=== PATIENT | female | born 1945 | race Caucasian/White ===

== ENCOUNTER 2022-10-28 06:07 | Day surgery (SDC) | payer MEDICARE ==
[2022-10-26 14:10] LABS: BASOPHILS % (AUTO) 0.7 % (0-1); EOSINOPHILS # (AUTO) 0.1 X10'3 (0-0.9); EOSINOPHILS % (AUTO) 1.3 % (0-6); LYMPHOCYTES # (AUTO) 1.6 X10'3 (1.1-4.8); LYMPHOCYTES % (AUTO) 27.2 % (21-51); MEAN CORPUSCULAR HEMOGLOBIN 30.6 PG (27.0-31.0); MEAN CORPUSCULAR HGB CONC 32.9 g/dL (33.0-36.5); MEAN PLATELET VOLUME 7.8 FL (7.4-10.4); MONOCYTES # (AUTO) 0.5 X10'3 (0-0.9); NEUTROPHILS # (AUTO) 3.7 X10'3 (1.8-7.7); NEUTROPHILS % (AUTO) 61.8 % (42-75); PRE OP HEMATOCRIT 41.7 % (35.0-45.0); PRE OP HEMOGLOBIN 13.7 g/dL (12.0-16.0); PRE OP PLATELET COUNT 250 X10'3 (140-440); RED BLOOD COUNT 4.48 X10'6 (4.20-5.60)
[2022-10-26 14:16] LABS: ALBUMIN/GLOBULIN RATIO 1.1 (1.1-1.5); ALKALINE PHOSPHATASE 137 IU/L (46-116); BLOOD UREA NITROGEN 13 MG/DL (7-18); BUN/CREATININE RATIO 19.1 (10.0-20.0); CALCIUM 9.4 MG/DL (8.5-10.1); CHLORIDE 105 MMOL/L (99-107); CREATININE 0.68 MG/DL (0.40-0.90); PRE OP ALT 26 U/L (30-65); PRE OP ANION GAP 9 (8-16); PRE OP AST 33 U/L (10-37); PRE OP BILIRUB, TOTAL 0.3 MG/DL (0.0-1.0); PRE OP SODIUM 140 MMOL/L (135-145); TOTAL CARBON DIOXIDE 26.5 MMOL/L (24-32); TOTAL PROTEIN 7.6 G/DL (6.4-8.2); eGFR 84 ML/MIN
[2022-10-26 14:18] LABS: PRE OP GLUCOSE 118 MG/DL (70-104)
[2022-10-26 14:32] LABS: PRE OP POTASSIUM 3.3 MMOL/L (3.4-5.1)
[~2022-10-28] VITALS: Ht 160 cm; Wt 47.0 kg
[~2022-10-28 06:07] MED LIST: CALC600T82 PO; LEVO75TA PO; PANT40TA54 PO; RIVA20TA PO; clindamycin 600mg/D5W 50ml 50 ML IV ONE; famotidine 20mg tablet PO ONE; ringers solution, lacted 1,000 ML IV SCH
[2022-10-28 06:15] VITALS: BP 120/67
[2022-10-28] MEDS ORDERED: BUPIVAcaine/PF 2.5mg/ml (0.25%) 10ml vial ONE ×2 (06:41→08:25)
[2022-10-28] MEDS ORDERED: LIDOcaine 1% 30ml preserv. free vial ONE (07:50)
[2022-10-28] MEDS ORDERED: BUPIVAcaine/PF 2.5mg/ml (0.25%) 10ml vial IJ ONE (08:30)
[2022-10-28] MEDS ORDERED: midazolam 1 mg/ML 2ml injection ONE (08:36)
[2022-10-28] MEDS ORDERED: fentaNYL/PF 50MCG/1 ML 2ML syringe ONE (08:36)
[2022-10-28 09:09] VITALS: BP 116/57
--- NOTE | 2022-10-28 09:09 | NUR ---
Received from OR via [facility], accompanied by Anesthesiologist JENNI and report given by Anesthesiolgist. PATIENT WITH 20G PIV IN LEFT UE RUNNING LR AT 100. DENIES PAIN. RIGHT UE WITH BIAS WRAP DRESSING THAT IS CDI MOVES ALL FINGERS AND HAS + CAP REFILL PRESENT. ICE UPON ARRIVAL TO RIGHT WRIST. Addendum: 10/28/22 at 0917 by Shashank Woods RN, RN Amended: Links added.
[2022-10-28 09:20] VITALS: BP_SYST 114; BP_SYST 122; BP_DIAS 64; BP_DIAS 68
[2022-10-28 09:30] VITALS: BP 133/68
[2022-10-28 09:40] VITALS: BP 142/73
--- NOTE | 2022-10-28 09:55 | NUR ---
PATIENT TAKEN OUT VIA WHEELCHAIR FOLLOWING REMOVAL OF IV AND REVIEW OF ALL DC INSTRUCTIONS. SPOUSE TO DRIVE PATIENT HOME. WHEELED OUT WHIT WHEELCHAIR TO PERSONAL VEHICLE WHERE SHE WAS DRIVEN HOME.\ VSS DENIES PAIN. ENCOURAGED TO ICE AND ELEVATE. Addendum: 10/28/22 at 0956 by Shashank Woods RN, RN Amended: Links added.
== END 2022-10-28 09:49 | disposition home or self-care (01) ==
LOC: PAS 06:07
PROVIDERS: ATTEND Orthopaedic Surgery Hand Surgery
DX: G56.01 Carpal tunnel syndrome, right upper limb (principal); E03.9 Hypothyroidism, unspecified; Z88.0 Allergy status to penicillin; Z88.8 Allergy status to other drugs, medicaments and biological substances; Z79.899 Other long term (current) drug therapy; Z87.891 Personal history of nicotine dependence; F10.91 Alcohol use, unspecified, in remission; Z86.718 Personal history of other venous thrombosis and embolism; Z87.11 Personal history of peptic ulcer disease; Z90.710 Acquired absence of both cervix and uterus; Z98.890 Other specified postprocedural states
CPT/HCPCS: 36415; 64721; 80053; 82948; 85025; 93005; J2250; J3010; J3490; J7030; J7120; Z7506; Z7512; A4215

== ENCOUNTER 2023-10-16 07:15 | Day surgery (SDC) | payer MEDICARE ==
[2023-10-10 15:15] LABS: BASOPHILS % (AUTO) 0.9 % (0-1); EOSINOPHILS # (AUTO) 0.1 X10'3 (0-0.9); EOSINOPHILS % (AUTO) 1.4 % (0-6); LYMPHOCYTES # (AUTO) 1.6 X10'3 (1.1-4.8); LYMPHOCYTES % (AUTO) 30.1 % (21-51); MEAN CORPUSCULAR HEMOGLOBIN 31.6 PG (27.0-31.0); MEAN CORPUSCULAR HGB CONC 33.5 g/dL (33.0-36.5); MEAN CORPUSCULAR VOLUME 94.2 FL (78-98); MEAN PLATELET VOLUME 7.6 FL (7.4-10.4); MONOCYTES # (AUTO) 0.6 X10'3 (0-0.9); MONOCYTES % (AUTO) 10.8 % (2-12); NEUTROPHILS % (AUTO) 56.8 % (42-75); PRE OP HEMATOCRIT 38.8 % (35.0-45.0); PRE OP PLATELET COUNT 236 X10'3 (140-440); PRE OP WHITE BLOOD COUNT 5.3 10'3 (4.8-10.8); RED BLOOD COUNT 4.12 X10'6 (4.20-5.60); RED CELL DISTRIBUTION WIDTH 12.4 % (11.5-14.5)
[2023-10-10 15:31] LABS: ALBUMIN 3.8 G/DL (3.4-5.0); ALBUMIN/GLOBULIN RATIO 1.2 (1.1-1.5); ALKALINE PHOSPHATASE 115 IU/L (46-116); BLOOD UREA NITROGEN 23 MG/DL (7-18); BUN/CREATININE RATIO 30.3 (10.0-20.0); CALCIUM 9.6 MG/DL (8.5-10.1); CHLORIDE 104 MMOL/L (99-107); CREATININE 0.76 MG/DL (0.40-0.90); PRE OP ALT 21 U/L (30-65); PRE OP ANION GAP 6 (8-16); PRE OP AST 26 U/L (10-37); PRE OP BILIRUB, TOTAL 0.4 MG/DL (0.0-1.0); PRE OP POTASSIUM 3.6 MMOL/L (3.4-5.1); PRE OP SODIUM 137 MMOL/L (135-145); TOTAL PROTEIN 6.9 G/DL (6.4-8.2); eGFR 74 ML/MIN
[2023-10-10 15:33] LABS: PRE OP GLUCOSE 89 MG/DL (70-104)
[2023-10-16] VITALS (9 sets, daily range): BP systolic 119–138; BP diastolic 59–85; PULSE 48–66; RESP 11–19; TEMP 97.6; O2SAT 73–100
[~2023-10-16] VITALS: Ht 160 cm; Wt 46.5 kg
[~2023-10-16 07:15] MED LIST changes: -CALC600T82 PO; +MAGN400C PO; -PANT40TA54 PO; -RIVA20TA PO; -clindamycin 600mg/D5W 50ml 50 ML IV ONE; -famotidine 20mg tablet PO ONE; +levoFLOXACIN-Levaquin 500mg/D5 100 ML IV ONE; -ringers solution, lacted 1,000 ML IV SCH
[2023-10-16] MEDS ORDERED: labetalol 20mg/4ml (5mg/ml) syringe IV PRN (07:25)
[2023-10-16] MEDS ORDERED: ondansetron/PF 4mg/2ml inj IV PRN (07:25)
[2023-10-16] MEDS ORDERED: morphine 4 MG/ML inj SYRINge IV PRN (07:25)
[2023-10-16] MEDS ORDERED: morphine 2 MG/ML inj. syringe IV PRN (07:25)
[2023-10-16] MEDS ORDERED: ringers solution, lacted 1,000 ML IV SCH (07:25)
[2023-10-16] MEDS ORDERED: fentaNYL/PF 50MCG/1 ML 2ML syringe IV PRN ×2 (07:25)
[2023-10-16] MEDS ORDERED: hydrALAZINE 20mg/ml inj. IV PRN (07:25)
[2023-10-16] MEDS: ringers solution, lacted 1,000 ML IV SCH (08:14)
[2023-10-16] MEDS: famotidine 20mg tablet PO ONE (08:14)
[2023-10-16] MEDS: levoFLOXACIN-Levaquin 500mg/D5 100 ML IV ONE (08:15)
[2023-10-16] MEDS ORDERED: BUPIVAcaine/PF 2.5mg/ml (0.25%) 10ml vial ONE (09:15)
[2023-10-16] MEDS ORDERED: fentaNYL/PF 50MCG/1 ML 2ML syringe ONE (09:26)
[2023-10-16] MEDS ORDERED: midazolam 1 mg/ML 2ml injection ONE (09:27)
[2023-10-16] MEDS ORDERED: LIDOcaine 2% (20mg/ml) 5ml vial ONE (09:27)
[2023-10-16] MEDS ORDERED: propofol inj 20 ML IV ONE (09:27)
[2023-10-16] MEDS ORDERED: ondansetron/PF 4mg/2ml inj ONE (09:27)
[2023-10-16] MEDS ORDERED: acetaminophen 1,000mg/100ml IV 100 ML IV ONE (09:28)
[2023-10-16] MEDS ORDERED: sevoflurane 250ml liquid IH ONE (09:30)
[2023-10-16] MEDS: BUPIVAcaine/PF 2.5 mg/ml (0.25%) 30ml vial IJ ONE (10:04)
[2023-10-16] MEDS: LIDOcaine 1% (10mg/ml)w/preservative inj. 20ml MDV ONE (10:05)
== END 2023-10-16 11:30 | disposition home or self-care (01) ==
LOC: PAS 07:15
PROVIDERS: ATTEND Surgery
DX: R92.8 Other abnormal and inconclusive findings on diagnostic imaging of breast (principal); I51.7 Cardiomegaly; E03.9 Hypothyroidism, unspecified; I20.9 Angina pectoris, unspecified; I25.2 Old myocardial infarction; Z86.718 Personal history of other venous thrombosis and embolism; Z85.3 Personal history of malignant neoplasm of breast; Z79.890 Hormone replacement therapy; Z79.899 Other long term (current) drug therapy; Z90.710 Acquired absence of both cervix and uterus; Z98.890 Other specified postprocedural states; Z88.0 Allergy status to penicillin
CPT/HCPCS: 19301; 36415; 80053; 82948; 85025; 93005; J0131; J1100; J1956; J2250; J2371; J2405; J2704; J3010; J3490; J7030; J7120; Z7506; Z7512; A4215; A4618; A6449; A7000